=== PATIENT | female | born 1975 | race Caucasian/White ===

== ENCOUNTER 2016-10-23 22:10 | Emergency (ER) | payer OTHER ==
[~2016-10-23] VITALS: Ht 167.6 cm; Wt 99.7 kg
[2016-10-23 22:15] VITALS: TEMP 37.2; Ht 167.6 cm; Wt 99.7 kg
[2016-10-23 22:35] VITALS: O2SAT 98
[2016-10-23] MEDS ORDERED: CLR10 PO (22:47)
[2016-10-23] MEDS ORDERED: IBUP-1050 PO (22:47)
[2016-10-23] MEDS ORDERED: METO100T44 PO (22:47)
[2016-10-23] MEDS ORDERED: ZOLM5SPR (22:47)
[2016-10-23] MEDS ORDERED: LOVA40TA4 PO (22:47)
[2016-10-23 22:56] LABS: BASO % 0.4 %; BASO ABS # 0.04 K/uL (0-0.2); COMPLETE YES; EOS % 1.2 %; HEMATOCRIT 34.1 % (37-47); IG% 0.3 %; LYMPH % 30.2 %; LYMPH ABS # 3.45 K/uL (1.2-3.4); MEAN CORPUSCULAR HEMOGLOBIN 26.8 pg (25-34); MEAN CORPUSCULAR HGB CONC 32.3 g/dl (32-36); MEAN PLATELET VOLUME 8.5 fL (7.4-10.4); MONO % 7.4 %; NEUT % 60.5 %; PLATELET COUNT 394 K/uL (130-400); RED BLOOD COUNT 4.11 M/uL (4.2-5.4); WHITE BLOOD COUNT 11.42 K/uL (4.8-10.8)
--- NOTE | 2016-10-23 22:58 | DIAGNOSTIC IMAGING REPORT ---
CHEST ONE VIEW PORTABLE CLINICAL HISTORY: Chest pain. COMPARISON STUDY: No previous studies for comparison. FINDINGS: Lung volumes are normal. Lungs are clear. There is no pneumothorax or pleural effusion. Cardiac size is normal. Mediastinal contours are normal. There is no evidence of pulmonary edema. IMPRESSION: No acute cardiopulmonary findings. Electronically signed by: Simon Marsh M.D. 10/23/2016 10:57 PM Dictated Date/Time: 10/23/2016 10:57 PM
[2016-10-23 23:06] LABS: ALT/SGPT 25 U/L (12-78); BLOOD UREA NITROGEN 10 mg/dl (7-18); BUN/CREATININE RATIO 14.6 (10-20); CARBON DIOXIDE 22 mmol/L (21-32); CHLORIDE 107 mmol/L (98-107); CREATININE 0.68 mg/dl (0.60-1.20); GLUCOSE 79 mg/dl (70-99); POTASSIUM 3.5 mmol/L (3.5-5.1); SODIUM 138 mmol/L (136-145)
[2016-10-23 23:11] LABS: ALKALINE PHOSPHATASE 77 U/L (45-117); AST/SGOT 20 U/L (15-37); CALCIUM 9.5 mg/dl (8.5-10.1)
[2016-10-23 23:19] LABS: PREG INTERNAL NEGATIVE QC NEG CLEAR BACKGROUND; PREG INTERNAL POSITIVE QC POS CONTROL LINE
[2016-10-23] MEDS ORDERED: DiphenhydrAMINE HCL 50 MG/ML VIAL IV STA (23:23)
[2016-10-23] MEDS ORDERED: METHYLPREDNISOLONE 125 MG VIAL IV STA (23:23)
[2016-10-23] MEDS ORDERED: OPTIRAY 320 IV PRN (23:30)
--- NOTE | 2016-10-24 00:45 | EMERGENCY ROOM VISIT NOTE ---
History First contact with patient: 22:18 Chief Complaint: CHEST PAIN Stated Complaint: CHEST PAIN, MIGRAINE Nursing Triage Summary: hx of migraines, and "some ventricular problem." pt was driving and got CP and a possible headache. right arm went numb and mouth went numb. lasted 5 mins. then resolved. History of Present Illness The patient is a 40 year old female who presents to the Emergency Room with complaints of sudden onset of right chest pain that started in her hand when up to her jaw and into her chest that lasted for 5 minutes and 9:30 tonight. Patient states this occurred while driving. She was also short of breath. She had a stress test last year that was normal and an echo 2 weeks ago that was normal per patient. She follows with Dr. Darling from cardiology in [place] for her ventricular dysrhythmia. He was passing through on her way home. Patient states all her symptoms have resolved. Patient denies abdominal pain, fever, chills, cough, congestion, back pain, leg pain or swelling. No history DVT or PE or heart disease. She is unsure of her paternal medical history. Her maternal medical history is negative for heart disease. Review of Systems See HPI for pertinent positives & negatives. A total of 10 systems reviewed and were otherwise negative. Past Medical/Surgical History Hypertension, hyperlipidemia, ventricular dysrhythmia, asthma, migraines, adenoidectomy Social History Smoking Status: Current Every Day Smoker Alcohol Use: none Drug Use: none Occupation Status: employed Current/Historical Medications Scheduled Loratadine (Claritin), 10 MG PO DAILY Lovastatin (Mevacor), 40 MG PO DAILY Metoprolol Succ (Toprol Xl) (Toprol-Xl ), 100 MG PO DAILY Zolmitriptan (Zomig), 5 MG NA PRN UD Scheduled PRN Ibuprofen (Advil), 800 MG PO TID PRN for Pain Allergies Coded Allergies: Iodine (Verified Allergy, Severe, RASH, 10/23/16) Codeine (Verified Adverse Reaction, Severe, GI SYMPTOMS, 10/23/16) Physical Exam Vital Signs Date Time Temp Pulse Resp B/P Pulse Ox O2 Delivery O2 Flow Rate FiO2 10/23/16 22:35 98 Room Air 10/23/16 22:25 83 10/23/16 22:20 99 Room Air 10/23/16 22:15 Room Air 10/23/16 22:15 37.2 81 23 177/83 100 Room Air Physical Exam VITALS: Vitals are noted on the nurse's note and reviewed by myself. Vital signs hypertensive GENERAL: Pleasant female, in no acute distress, nondiaphoretic, well-developed well-nourished. SKIN: The skin was without rashes, erythema, edema, or bruising. There is no tenting of the skin. Capillary reflex less than 2 seconds. HEAD: Normocephalic atraumatic. EARS: External auditory canals clear, tympanic membranes pearly varner without erythema or effusion bilaterally. EYES: Pupils equal round and reactive to light and accommodation. Conjunctivae without injection, sclerae without icterus. Extraocular movements intact. NOSE: Patent, turbinates without inflammation or discharge. MOUTH: Mucous membranes moist. Pharynx without erythema or exudate. Uvula midline. Airway patent. Tongue does not deviate. NECK: Supple without nuchal rigidity. No lymphadenopathy. No thyromegaly. Cervical spine is nontender. No JVD. HEART: Regular rate and rhythm without murmurs gallops or rubs. LUNGS: Clear to auscultation bilaterally without wheezes, rales or rhonchi. No dullness to percussion. No retractions or accessory muscle use. ABDOMEN: Positive bowel sounds x 4. Normal tympanic percussion. Soft, nontender, without masses or organomegaly. Johnson sign negative. No guarding or rebound tenderness. MUSCULOSKELETAL: No muscle atrophy, erythema, or edema noted. NEURO: Patient was alert and oriented to person place and time. Normal sensation to light and sharp touch. No focal neurological deficits. Medical Decision & Procedures Laboratory Results 10/23/16 21:55 Red Blood Count 4.11, Mean Corpuscular Volume 83.0, Mean Corpuscular Hemoglobin 26.8, Mean Corpuscular Hemoglobin Concent 32.3, Mean Platelet Volume 8.5, Neutrophils (%) (Auto) 60.5, Lymphocytes (%) (Auto) 30.2, Monocytes (%) (Auto) 7.4, Eosinophils (%) (Auto) 1.2, Basophils (%) (Auto) 0.4, Neutrophils # (Auto) 6.92, Lymphocytes # (Auto) 3.45, Monocytes # (Auto) 0.84, Eosinophils # (Auto) 0.14, Basophils # (Auto) 0.04 10/23/16 21:55 Test 10/23/16 21:55 10/23/16 22:40 White Blood Count 11.42 K/uL (4.8-10.8) Red Blood Count 4.11 M/uL (4.2-5.4) Hemoglobin 11.0 g/dL (12.0-16.0) Hematocrit 34.1 % (37-47) Mean Corpuscular Volume 83.0 fL (80-100) Mean Corpuscular Hemoglobin 26.8 pg (25-34) Mean Corpuscular Hemoglobin Concent 32.3 g/dl (32-36) Platelet Count 394 K/uL (130-400) Mean Platelet Volume 8.5 fL (7.4-10.4) Neutrophils (%) (Auto) 60.5 % Lymphocytes (%) (Auto) 30.2 % Monocytes (%) (Auto) 7.4 % Eosinophils (%) (Auto) 1.2 % Basophils (%) (Auto) 0.4 % Neutrophils # (Auto) 6.92 K/uL (1.4-6.5) Lymphocytes # (Auto) 3.45 K/uL (1.2-3.4) Monocytes # (Auto) 0.84 K/uL (0.11-0.59) Eosinophils # (Auto) 0.14 K/uL (0-0.5) Basophils # (Auto) 0.04 K/uL (0-0.2) RDW Standard Deviation 52.2 fL (36.4-46.3) RDW Coefficient of Variation 17.2 % (11.5-14.5) Immature Granulocyte % (Auto) 0.3 % Immature Granulocyte # (Auto) 0.03 K/uL (0.00-0.02) Anion Gap 9.0 mmol/L (3-11) Est Creatinine Clear Calc Drug Dose 132.3 ml/min Estimated GFR () 127.7 Estimated GFR (Non- 110.2 BUN/Creatinine Ratio 14.6 (10-20) Calcium Level 9.5 mg/dl (8.5-10.1) Total Bilirubin 0.4 mg/dl (0.2-1) Direct Bilirubin < 0.1 mg/dl (0-0.2) Aspartate Amino Transf (AST/SGOT) 20 U/L (15-37) Alanine Aminotransferase (ALT/SGPT) 25 U/L (12-78) Alkaline Phosphatase 77 U/L (45-117) Troponin I < 0.015 ng/ml (0-0.045) Total Protein 7.8 gm/dl (6.4-8.2) Albumin 4.0 gm/dl (3.4-5.0) Lipase 396 U/L (73-393) Human Chorionic Gonadotropin, Qual NEG (NEG) Bedside D-Dimer > 450 ng/mlFEU (0-450) Bedside Troponin I 0.020 ng/ml (0-0.045) Medications Administered Medications (Trade) Dose Ordered Sig/Jennifer Route Start Time Stop Time Status Last Admin Dose Admin Methylprednisolone Sodium Succinate (Solu-Medrol IV) 125 mg NOW STAT IV 10/23/16 23:23 10/23/16 23:24 DC 10/23/16 23:34 125 MG Diphenhydramine HCl (Benadryl Inj) 50 mg NOW STAT IV 10/23/16 23:23 10/23/16 23:24 DC 10/23/16 23:34 50 MG ED Course Prior records/ancillary studies reviewed. Triage Nursing notes reviewed. Additional history obtained from family. The patient's history was concerning for chest pain. Differential diagnosis: Etiologies such as cardiac ischemia, aortic dissection, pulmonary embolism, pneumonia, pneumothorax, musculoskeletal, infections, pericarditis, myocarditis , esophageal rupture, gastrointestinal, as well as others were entertained. Physical examination: As above. ER treatment provided: Patient took her home migraine medication On reassessment the patient felt better. Diagnostic interpretation by me: The electrocardiogram was negative for pathologic change. Normal sinus, normal intervals, no acute ST-T wave changes, it is 78. Impression normal sinus rhythm interpreted by myself The labs revealed negative troponin. Elevated d-dimer. Imaging studies: Chest x-ray with no acute consolidation or pneumothorax or free air per my interpretation Patient states 25 years ago she a rash from iodine. No known anaphylaxis from IV contrast. Patient was though premedicated prior to her CTA. CTA CHEST: No evidence of pulmonary embolism or other acute chest abnormality to account for symptoms. No thoracic aortic aneurysm or dissection. No focal consolidation, pulmonary edema , pleural effusion or pneumothorax. Normal cardiac size. No pericardial effusion. Density in the anterosuperior mediastinum is compatible with residual thymus. Prominent left adrenal gland, incompletely visualized. Low-attenuation left adrenal nodule or adrenal hyperplasia not excluded. Radiologist: Gabriela James MD Exam and history seem consistent with chest pain with unclear etiology. This is unlikely cardiac. Patient had 2 sets of troponins that were 2 hours apart that were negative. Normal EKG. Unremarkable workup as above. She is advised to follow-up with family care and her line ordering clinician in a few days or here in the ER sooner for chest pain, fevers, difficulty breathing, worsening signs or symptoms or as needed. By the evaluation outlined above emergent etiologies such as cardiac ischemia, aortic dissection, pulmonary embolism, pneumonia, pneumothorax, infections, pericarditis, myocarditis, gastrointestinal, as well as others were deemed relatively unlikely. The pt informed about the findings as listed above. All questions were answered and pleased with the treatment. Return instructions were outlined and the patient was discharged in stable condition. Referral: The patient was referred back to her line ordering clinician and/or primary care physician for follow-up in 2 to 3 days for a recheck of the current condition. Case reviewed with my attending. Medical Decision As above Impression Primary Impression: Substernal precordial chest pain Departure Information Dispostion Home / Self-Care Condition GOOD Referrals No Doctor, Assigned (PCP) Patient Instructions [facility] Additional Instructions Ibuprofen(Motrin, Advil) may be used for fever or pain. Use 600mg every six hours as needed. Take with food. Avoid using more than 2400mg in a 24 hour period. Do not use 2400mg per day for more than three consecutive days without physician direction. Prolonged inappropriate use can lead to stomach upset or ulcers. (AND/OR) Acetaminophen(Tylenol) may be used for fever or pain. Use 1000mg every six hours as needed. Avoid using more than 3000mg in a 24 hour period. Rest and drink plenty of fluids as tolerated. Continue current medications. Avoid strenuous activities and anything that worsens your pain. Resume normal activities once your symptoms resolve. Return to the ER immediately for worsening or persistent chest pain, abdominal pain, vomiting, fevers, chest pains, difficulty breathing, worsening of your condition, or as needed. Follow up with your primary physician in 2-3 days for a recheck of your current condition.
[2016-10-24 00:58] VITALS: BP 130/80; PULSE 85; O2SAT 93
--- NOTE | 2016-10-24 06:30 | DIAGNOSTIC IMAGING REPORT ---
CHEST CTA for PULMONARY ARTERIES CT DOSE: 513.19 mGy.cm HISTORY: Chest pain dyspnea TECHNIQUE: Multiaxial CT images of the chest were performed following the intravenous administration of contrast to evaluate the pulmonary arteries. Maximal intensity projection images were also obtained. COMPARISON STUDY: None. FINDINGS: There is a normal caliber thoracic aorta with no evidence for dissection. There is no evidence for pulmonary embolus. No pleural effusions. No pneumothorax. The liver and spleen are unremarkable. No mediastinal or hilar lymphadenopathy. The central airways are patent. The lungs are clear. IMPRESSION: No evidence for pulmonary embolus. Electronically signed by: Subhash Castillo M.D. 10/24/2016 6:29 AM Dictated Date/Time: 10/24/2016 6:28 AM
== END 2016-10-24 00:59 | disposition home or self-care (01) ==
LOC: EDBD 22:10 → C.EDB 22:10
DX: R07.2 Precordial pain (principal); I10 Essential (primary) hypertension; E78.5 Hyperlipidemia, unspecified; J45.909 Unspecified asthma, uncomplicated; F17.210 Nicotine dependence, cigarettes, uncomplicated; Z79.899 Other long term (current) drug therapy